=== PATIENT | female | born 1985 | race Caucasian/White ===

== ENCOUNTER 2024-05-05 05:47 | Inpatient (IN) ==
[2024-05-05 06:27] LABS: BASOPHILS % (AUTO) 0.4 %; EOSINOPHILS # (AUTO) 0.6 10^3/uL (0.0-0.7); EOSINOPHILS % (AUTO) 7.5 %; HCT - HEMATOCRIT 34.9 % (37.0-47.0); HGB - HEMOGLOBIN 11.5 g/dL (12.0-16.0); LYMPHOCYTES # (AUTO) 2.6 10^3/uL (1.5-3.5); LYMPHOCYTES % (AUTO) 33.7 %; MEAN CORPUSCULAR HEMOGLOBIN 29.2 pg (27.0-31.0); MEAN CORPUSCULAR VOLUME 88.6 fL (81.0-99.0); MEAN PLATELET VOLUME 11.9 fL (7.9-10.8); MONOCYTES # (AUTO) 0.6 10^3/uL (0.0-1.0); MONOCYTES % (AUTO) 7.5 %; NEUTROPHILS # (AUTO) 3.9 10^3/uL (1.5-6.6); NEUTROPHILS % (AUTO) 50.4 %; PLT - PLATELET COUNT 306 10^3/uL (130-450); RED BLOOD COUNT 3.94 10^6/uL (4.20-5.40); RED CELL DISTRIBUTION WIDTH 12.1 % (12.0-15.0); WHITE BLOOD COUNT 7.7 x10^3/uL (4.8-10.8)
[2024-05-05] MEDS ORDERED: ceFAZolin 2 GM VIAL ONE (06:27)
[2024-05-05] MEDS: ACETAMINOPHEN 500 MG TABLET PO ONE (06:33)
[2024-05-05] MEDS: LACTATED RINGERS 1,000 ML IV SCH (06:34)
[2024-05-05] MEDS ORDERED: PHENYLEPHRINE HCL 0.5 MG/5 ML AMPULE ONE (06:50)
[2024-05-05] MEDS ORDERED: ONDANSETRON 4 MG/2 ML VIAL ONE (06:50)
[2024-05-05] MEDS ORDERED: HYDROmorphone 0.5 MG/0.5 ML SYRINGE IVP PRN (07:14)
[2024-05-05] MEDS ORDERED: fentaNYL 100 MCG/2 ML VIAL IVP PRN (07:14)
[2024-05-05] MEDS ORDERED: MORPHINE 2 MG/ML CARPUJECT IVP PRN (07:14)
[2024-05-05] MEDS ORDERED: ONDANSETRON 4 MG/2 ML VIAL IVP PRN ×3 (07:14→09:28)
[2024-05-05] MEDS ORDERED: NALOXONE 0.4 MG/ML VIAL IVP PRN ×3 (07:14→09:28)
[2024-05-05] MEDS ORDERED: ATROPINE ABBOJECT 1 MG/10 ML SYRINGE IVP PRN (07:14)
--- NOTE | 2024-05-05 07:23 | ANESTHESIA PROCEDURE NOTE ---
Pre-Anesthesia VS, & Labs Diagnosis Surgical Diagnosis:: h previous C section Procedure Procedure: C section Vitals Vital Signs: Temp Pulse Resp BP 37.1 C 72 18 144/89 H 05/05/24 05:53 05/05/24 05:53 05/05/24 05:53 05/05/24 05:53 Height (in): 5 ft 7 in Weight (kg): 86.3 kg Body Mass Index: 29.7 BMI Classification: Overweight NPO NPO: >8 hours Is Patient ?: Yes Estimated Due Date:: 05/05/24 Lab Results Current Lab Results: Laboratory Tests 05/05/24 06:05: WBC 7.7, RBC 3.94 L, Hgb 11.5 L, Hct 34.9 L, MCV 88.6, MCH 29.2, MCHC 33.0, RDW 12.1, Plt Count 306, MPV 11.9 H, Neut # (Auto) 3.9, Lymph # (Auto) 2.6, Coffee # (Auto) 0.6, Eos # (Auto) 0.6, Baso # (Auto) 0.0, Absolute Nucleated RBC 0.00, Nucleated RBC % 0.0 Lab results reviewed: Yes 05/05/24 06:05 Meds/Allgy Home Medications Ambulatory Orders Medication Instructions Recorded Confirmed vitamins-iron 29 mg-folic tab PO 04/27/24 05/04/24 acid 1 mg-docusate 50 mg tablet Allergies Allergies Allergy/AdvReac Type Severity Reaction Status Date / Time iodine Allergy Unknown Unknown Verified 04/27/24 10:27 shellfish derived Allergy Unknown Anaphylaxis Verified 04/27/24 10:27 PFSH Active Problems All Active Problems Maternal care due to low transverse uterine scar from previous delivery (Acute) Uterine size date discrepancy (Acute) Medical History Medical History Headache Asthma Anemia Abruptio placenta Surgical History Surgical History H/O nasal septoplasty History of delivery x2 Family History Family History Mother Diabetes High blood pressure Maternal grandmother Diabetes Social History Social History Smoking Status: Former smoker If you are a former smoker, when did you quit? (Date/Year): 9months ago Number of Years Smoked: 10 How many cigarettes a day do you smoke? (20 cigarettes=1 Pk): 4 Do you dip or chew tobacco?: No Do you vape?: Yes Patient requests smoking cessation consult: No Initiate information on smoking cessation: No Do you feel safe in your home environment?: Yes ETOH Use: None Substance Use: denies use Anesthesia Exam (Expanded) Exam General: Alert and Oriented x3 Dental: WNL Mouth Opening: Greater than 4 Fingerbreadths Neck Mobility: Normal Mallampati classification: II Thyromental Distance: 4-6 cm Respiratory: No respiratory distress Cardiovascular: Regular rate Abdomen: Other (gravid ) Neurological: Normal speech Mental/Cognitive Status: Alert/Oriented X3 and Normal for patient Cognitive Status: Within normal limits Plan Problem List (1) H/O nasal septoplasty: (2) History of delivery: (3) Abruptio placenta: (4) Anemia: (5) Asthma: (6) Headache: (7) Maternal care due to low transverse uterine scar from previous delivery: (8) Uterine size date discrepancy: Plan Anesthesia Type: Spinal Consent for Procedure(s) Verified and Reviewed: Yes Code Status: Attempt Resuscitation ASA Classification ASA classification: 2-Mild systemic disease Is this case an emergency?: No
[2024-05-05] MEDS ORDERED: MORPHINE PF 5 MG/10 ML VIAL ONE (07:28)
[2024-05-05] MEDS ORDERED: PHENYLEPHRINE 10 MG/ML VIAL ONE (07:29)
[2024-05-05] MEDS ORDERED: miSOPROStoL 200 MCG TABLET ONE (07:29)
[2024-05-05] MEDS ORDERED: METHYLERGONOVINE 0.2 MG/ML VIAL ONE (07:30)
[2024-05-05] MEDS: CITRIC ACID/SODIUM CITRATE 15 ML UDC PO ONE (07:30)
[2024-05-05] MEDS: ceFAZolin (2G) 2 GM in SODIUM CHLORIDE 0.9% MINIBAG 100 ML IV ONE (07:30)
[2024-05-05] MEDS ORDERED: OXYTOCIN/SODIUM CHLORIDE 500 ML IV ONE (07:30)
[2024-05-05] MEDS ORDERED: fentaNYL 100 MCG/2 ML VIAL ONE (07:30)
[2024-05-05] MEDS ORDERED: CARBOPROST TROMETHAMINE 250 MCG/ML VIAL IM ONE (07:30)
[2024-05-05] MEDS ORDERED: DEXTROSE 40% GEL 37.5 GM TUBE ONE (07:32)
--- NOTE | 2024-05-05 07:38 | HISTORY & PHYSICAL EXAMINATION ---
Admit History Smoking Status: Former smoker Other Maternal History Other Maternal History: FINDINGS: General: A single living intrauterine gestation is present. Presentation: Variable Placenta: Placental position is posterior, without previa. Amniotic fluid index: 8.2 cm, measuring at the 7.8% for gestational age. Largest vertical pocket measures 3.4 cm. heart rate: 136 beats per minute. Maternal cervical canal: Not well seen on this exam. biometrics: Biparietal diameter: 8.86 cm, 35 weeks and 6 days (22nd percentile) Head circumference: 33.27 cm, 38 weeks and 0 days (36th percentile). Abdominal circumference: 30.44 cm, 34 weeks and 3 days (2.3rd percentile) Femur length: 6.98 cm, 35 weeks and 6 days (12th percentile) Estimated gestational age from initial scan: 37 weeks and 4 days Composite gestational age from present scan: 36 weeks and 0 days Estimated weight and percentile: 2242.9 g which correlates with the 10th percentile for gestational age. Expected Delivery Route/Plan Specific Issues/Plans LMP:08/16/23 SUHAS by LMP: U/S: 10/06/23 7w6d Final SUHAS: 05/18/2024 - AMA - S<D, growth US ordered - Prior CS x 2 - requested last op report Pre- weight: 165 BMI: 25.09 Blood type: B+ Antibody screen: neg CBC: PLT HCT HGB 12.5/36.0 253 Rubella: immune VZV: immune HBsAg: NR HepC: NR RPR/AB-EIA: NR HIV: NR Flu: declined COVID: recv'd in fall PAP: 10/25/23 neg GC/CT: 10/25/23 neg HSV: denies self/partner Genetic Testing: MaternIT 21/AFP negative FAS: 12/31/23 Placenta: posterior without previa Cord: 3VC JACOBO: EFW: 353g 60% 50gm GCT: 127 3 hr GTT: normal (107/156/125/90) TDAP: rcvd previous provider Breast Pump: given today 2nd antibody screen: 3rd trimester H/H 10.8/32.6 PLT 302 3rd trimester RPR: NR RSV: not given, too late GBS: 04/28/23 mls Delivery plan: Repeat (declines sterilization) contraception: partner vasectomy HPI Diagnosis/Indication for NST: Intrauterine growth restriction Current : Current EDU 05/05/24 Gestation 38 Weeks and 1 Days Para 2 Vital Signs Temperature 37.1 C 05/05/24 05:53 Pulse Rate 72 05/05/24 05:53 Respiratory Rate 18 05/05/24 05:53 Blood Pressure 144/89 H 05/05/24 05:53 NST Procedure NST Procedure: NST Procedure Start Date 05/05/24 Start Time 06:20 Stop Time 06:47 Vibroacoustic Stimulation Used No Patient States Movement Yes Results and Plan Findings/Impression: Reactive for of 32 weeks gestation or more. NST tracing contains at least two heart rate accelerations that are at least 15 beats per minute above the baseline rate and lasting at least 15 seconds from onset to return to baseline within a twenty minute period. Plan: continue with c section Meds/Allgy Home Medications Ambulatory Orders Medication Instructions Recorded Confirmed vitamins-iron 29 mg-folic tab PO 04/27/24 05/04/24 acid 1 mg-docusate 50 mg tablet Allergies Allergies Allergy/AdvReac Type Severity Reaction Status Date / Time iodine Allergy Unknown Unknown Verified 04/27/24 10:27 shellfish derived Allergy Unknown Anaphylaxis Verified 04/27/24 10:27 PFS Active Problems All Active Problems (Updated 05/05/24 @ 07:34 by Maxine Perkins MD) Intrauterine growth restriction (IUGR) affecting care of mother, third trimester, single gestation (Acute) Maternal care due to low transverse uterine scar from previous delivery (Acute) Medical History Medical History Headache Asthma Anemia Abruptio placenta Surgical History Surgical History H/O nasal septoplasty History of delivery x2 Family History Family History Mother Diabetes High blood pressure Maternal grandmother Diabetes Social History Social History Smoking Status: Former smoker If you are a former smoker, when did you quit? (Date/Year): 9months ago Number of Years Smoked: 10 How many cigarettes a day do you smoke? (20 cigarettes=1 Pk): 4 Do you dip or chew tobacco?: No Do you vape?: Yes Patient requests smoking cessation consult: No Initiate information on smoking cessation: No Do you feel safe in your home environment?: Yes ETOH Use: None Substance Use: denies use Review of Systems Constitutional Reports: Fatigue Cardiovascular Denies: Irregular heart rate, chest pain or shortness of breath with exertion Respiratory Denies: Shortness of breath Gastrointestinal Denies: Abdominal pain Neurological Denies: Headache Psychiatric Reports: Anxiety Endocrine Reports: Fatigue Physical Abdominal Exam Vital Signs: Temp Pulse Resp BP 37.1 C 72 18 144/89 H 05/05/24 05:53 05/05/24 05:53 05/05/24 05:53 05/05/24 05:53 patient is quite anxious and shedding tears hear RRR lungs: no respiratory distress abdomen with gravid uterus, but small for her gestation extremities not tender. no edema. Contraction Frequency (min/apart): none Presentation Presentation: positive Vertex Vaginal Exam Membranes: positive Membranes intact Speculum Exam Speculum Exam Performed: positive No Plan for Labor Plan For Labor I expect patient to be DC'd or transferred within 96 hours.: Yes Plan for Labor: repeat c section today as baby's AC is very small. 2500 grm EFW today. so recommend c section at 38 weeks instead of 39 due to probable placenta insufficiency. consents signed. Conclusion/Plan Problem List (1) Maternal care due to low transverse uterine scar from previous delivery: Plan: repeat c section today. did not want sterilization (2) Intrauterine growth restriction (IUGR) affecting care of mother, third trimester, single gestation: Plan: baby is just 2500 grams today. Lab Results Lab results reviewed: Yes 05/05/24 06:05
[2024-05-05] MEDS ORDERED: LACTATED RINGERS 1,000 ML IV SCH (08:00)
[2024-05-05] MEDS ORDERED: KETOROLAC 30 MG/ML VIAL ONE (08:22)
[2024-05-05] MEDS ORDERED: METOCLOPRAMIDE 10 MG/2 ML VIAL IVP PRN (08:53)
[2024-05-05] MEDS ORDERED: METOCLOPRAMIDE 10 MG TABLET PO PRN (08:53)
[2024-05-05] MEDS ORDERED: diphenhydrAMINE INJ 50 MG/ML VIAL IVP PRN (08:53)
[2024-05-05] MEDS ORDERED: OXYTOCIN/SODIUM CHLORIDE 500 ML IV PRN (08:53)
[2024-05-05] MEDS ORDERED: diphenhydrAMINE 25 MG CAPSULE PO PRN (08:53)
[2024-05-05] MEDS: PRENATAL VITAMIN TABLET PO SCH (09:00)
[2024-05-05] MEDS: DOCUSATE SODIUM 100 MG CAPSULE PO SCH (09:00)
--- NOTE | 2024-05-05 09:24 | ANESTHESIA POST OP EVALUATION ---
Anesthesia Post Eval Post Anesthesia Eval Vitals: Last Vital Signs Temp 36.3 C L 05/05/24 09:15 Pulse 48 L 05/05/24 09:15 Resp 16 05/05/24 09:15 BP 104/64 05/05/24 09:15 Pulse Ox 98 05/05/24 09:15 CV Function Including HR & BP: Stable Pain Control: Satisfactory Nausea & Vomiting: Negative Mental Status: Baseline Respiratory Status: Airway Patent Hydration Status: Satisfactory Anesthesia Complications: None
[2024-05-05] MEDS: MORPHINE PF 5 MG/10 ML VIAL IT ONE (09:28)
[2024-05-05] MEDS ORDERED: NALBUPHINE 10 MG/ML AMP IVP PRN (09:28)
[2024-05-05] MEDS: fentaNYL 100 MCG/2 ML VIAL IT ONE (09:30)
--- NOTE | 2024-05-05 12:33 | PHARMACY PROGRESS NOTE ---
Best Possible Medication History Admit Date and Time: 05/05/24 [id number] Home Medications Medication Instructions Recorded Confirmed Type vit no.133-ferrous 1 tab PO DAILY 05/05/24 05/05/24 History fumarate 28 mg-folic acid 800 mcg tablet () Processed by: Pharmacy Medications reviewed in ED?: No Medication History completed: Yes Patient Interview: Completed Secondary Source(s): Insurance records [facility] Statement: Per [facility] interview with patient and [facility]. As the person ultimately responsible for medication therapy, providers are able to order a medication from an existing home medication list in [facility] via the "Reconcile Routine" prior to Confirmation of that medication by technology support analyst. Such practice is discouraged except when the physician, in their clinical judgment, deems that a medical need exists for a medication without regard to previous use.
[2024-05-05] MEDS: oxyCODONE 5 MG TABLET PO PRN (13:51)
[2024-05-05] MEDS: ACETAMINOPHEN 500 MG TABLET PO SCH (14:23)
[2024-05-05] MEDS: KETOROLAC 30 MG/ML VIAL IVP SCH (14:23)
[2024-05-05] MEDS: SIMETHICONE CHEW 80 MG TABLET PO PRN (17:46)
--- NOTE | 2024-05-05 18:54 | OPERATIVE REPORT ---
Operative Report General Admit Date: 05/05/24 Procedure Data: Operation Date: 05/05/24 07:30 Proposed Procedures p Section(Not Applicable) - Maxine Perkins MD Actual Procedures p Section(Not Applicable) - Maxine Perkins MD Pre-Op Diagnosis: PREVIOUS Anesthesia Type Spinal Case Staff Anesthesia Provider: Estelita Arias Anesthesia Provider: Brenna Jay Assisting Provider: Fabiola Callahan Case Times Into Recovery: 05/05/24 08:37 Procedure Start: 05/05/24 07:59 Procedure End: 05/05/24 08:30 Time out: 05/05/24 07:58 Pre-Op Diagnosis: previous c section x 2, IUGR of baby, at 38 w ga Post Op Diagnosis: same delivered. Procedure Note Intake, IV Amount (ml): 1,100 Estimated Blood Loss (ml): 350 Output, Urine Amount (ml): 50 Pathology: placenta Indications: 38 yo with 3rd baby, first girl. baby measured small in office. US showed baby at 5th%ile for weight. AC at 2.3%ile. recommend c section today given IUGR, AMA and concern for placental insufficiency. 2 prior c sections. Just moved here 2 weeks ago from [place]. . EFW today is 2500 grams. Findings: live female infant names Rodolfo weighing 2472 grams, 5 lb 7 oz. Baby was crying well from time of . Placenta appeared normal. Uterus, tubes, and ovaries normal. Complications: none Other Other Information/Narrative: Procedure: RepeatLow Transverse Section Hse Specialist: My marketing communications assistant was scrubbed and present during the entire procedure and assisted with visualization, hemostasis, fundal pressure for delivery, and closure. Procedure Details The risks, benefits, complications, treatment options, and expected outcomes were discussed with the patient. The patient concurred with the proposed plan, giving informed consent. The patient was taken to the Operating Room. 2 grams of Cefazolin were given. She had sequential compression devices on her lower extremities. Andre catheter was placed. A Time Out was held and the above information confirmed. The patient was prepped in the usual sterile manner. Drapes were placed. Anesthesia was tested and found to be adequate. A Pfannenstiel incision was made and carried down through the subcutaneous tissue to the fascia. Fascial incision was made and extended transversely. The fascia was from the underlying rectus tissue superiorly and inferiorly. The peritoneum was identified and entered. Peritoneal incision was stretched. The Leonides retractor was placed and rolled down. The uterus was palpated to examine lie. A low transverse uterine incision was made. The incision was stretched manually. Bag of water was entered during the process and fluid was clear. The baby was elevated through the incision. Double nuchal cord was reduced. The baby was delivered and brought up towards her chest to show mom. Baby was dried and stimulated. I waited for 1 minute to clamp the cord. After the umbilical cord was clamped and cut, cord blood was obtained for evaluation. The placenta was removed intact using gentle traction and appeared normal, sent for pathology given IUGR. The uterine outline, tubes and ovaries appeared normal. The uterine incision was closed with running locked sutures of 0 Monocryl suture. A second horizontal imbricating layer was placed with the same suture. Hemostasis was observed. The Leonides retractor was removed. Rectus muscles were examined carefully for bleeding. The subcutaneous tissue was brought together with 3.0 Monocryl suture and the skin was closed with 3.0 Monocryl in subcuticular fascia. Dermabond was placed over the wound. Bandage was placed. Uterus was expressed, but little came out. Fundus was firm. Patient was then brought to the PACU in stable condition. Instrument, sponge, and needle counts were correct prior the abdominal closure and at the conclusion of the case. Drains: Andre catheter to gravity Complications: None; patient tolerated the procedure well. Disposition: back to her room on FBP for recovery. Condition: stable Plan: Routine post op care
[2024-05-06] MEDS: IBUPROFEN 600 MG TABLET PO SCH (08:44)
[2024-05-06 08:57] LABS: HCT - HEMATOCRIT 30.6 % (37.0-47.0); HGB - HEMOGLOBIN 9.7 g/dL (12.0-16.0); MEAN CORPUSCULAR HEMOGLOBIN 29.1 pg (27.0-31.0); MEAN CORPUSCULAR HGB CONC 31.7 g/dL (32.0-36.0); MEAN CORPUSCULAR VOLUME 91.9 fL (81.0-99.0); MEAN PLATELET VOLUME 11.4 fL (7.9-10.8); RED BLOOD COUNT 3.33 10^6/uL (4.20-5.40); RED CELL DISTRIBUTION WIDTH 12.3 % (12.0-15.0); WHITE BLOOD COUNT 5.9 x10^3/uL (4.8-10.8)
--- NOTE | 2024-05-06 14:51 | ANESTHESIA PROCEDURE NOTE ---
Anesthesia Epidural Template Patient Report Patient Reports: positive Inadequate control (c/o 11/17 PDPH s/sx, s/p dural pumcture for c/s 05/05) Plan Plan: positive Other (Epidural blood patch with 16cc autologus blood injected slowly. Pt c/o discomfort at 16cc. Patient states pain much better after procedure.)
--- NOTE | 2024-05-06 19:01 | PROVIDER PROGRESS NOTE ---
Subjective Subjective Subjective: Subjective Patient reports she is doing well. Lochia appropriate. Denies heavy bleeding. Ambulating. Pelvic and abdominal pain well-controlled. Tolerating oral intake. Diet: Regular. Voiding without difficulty. Passing flatus. Denies BM. Patient is bonding with baby in room Breast feeding slow to start. Pumping, but not getting much Denies feeling lightheaded, dizzy or excessively fatigued. Objective General: Alert, oriented, no apparent distress. Cardiovascular: Regular rate. Regular rhythm. Lungs: No increased work of breathing. Abdomen: Uterus firm. Below umbilicus. No guarding or rebound. Extremities: No pain on palpation. No cords palpated. Distal pulses intact. Incision: Clean, dry, and intact. Current Medications Current Medications Current Medications: Current Medications Generic Name Dose Route Start Last Admin Trade Name Freq PRN Reason Stop Dose Admin Acetaminophen 1,000 mg 05/05/24 09:00 05/06/24 06:19 Acetaminophen 500 Mg Tablet PO 1,000 mg Q8H TOMMY Administration Diphenhydramine HCl 25 mg 05/05/24 08:53 Diphenhydramine 25 Mg Capsule PO Q6HR PRN Allergy Symptoms Diphenhydramine HCl 25 mg 05/05/24 08:53 Diphenhydramine Inj 50 Mg/Ml Vial IVP Q6H PRN Allergy Symptoms Docusate Sodium 200 mg 05/05/24 09:00 05/06/24 08:44 Docusate Sodium 100 Mg Capsule PO 200 mg BID TOMMY Administration Lactated Ringer's 1,000 mls @ 125 mls/hr 05/05/24 07:00 05/06/24 09:44 Lr IV Not Given .Q8H TOMMY Oxytocin/Sodium Chloride 500 mls @ 999 mls/hr 05/05/24 08:53 Pitocin/Sodium Chloride IV PRN PRN POST- HEMORR PREVENTION Protocol 999 MILLIUNIT/MIN Ibuprofen 600 mg 05/06/24 09:00 05/06/24 08:44 Ibuprofen 600 Mg Tablet PO 600 mg Q6HR TOMMY Administration Metoclopramide HCl 5 mg 05/05/24 08:53 Metoclopramide 10 Mg Tablet PO Q6HR PRN Nausea / Vomiting Metoclopramide HCl 5 mg 05/05/24 08:53 Metoclopramide 10 Mg/2 Ml Vial IVP Q6HR PRN Nausea / Vomiting Naloxone HCl 0.4 mg 05/05/24 08:53 Naloxone 0.4 Mg/Ml Vial IVP .ONCE PRN Opioid overdose Ondansetron HCl 4 mg 05/05/24 08:53 Ondansetron 4 Mg/2 Ml Vial IVP Q4HR PRN Nausea / Vomiting Oxycodone HCl 5 mg 05/05/24 08:53 05/06/24 08:44 Oxycodone 5 Mg Tablet PO 5 mg Q4HR PRN Administration Severe Pain 6 -10 Multivit/Folic Acid/Iron 1 tab 05/05/24 09:00 05/05/24 09:00 Vitamin Tablet PO Not Given DAILY TOMMY Simethicone 80 mg 05/05/24 08:53 05/05/24 17:46 Simethicone Chew 80 Mg Tablet PO 80 mg TID PRN Administration Gas Objective Vital Signs/Intake & Output Vital Signs: Vital Signs x48h Temp Pulse Pulse Resp BP Pulse Ox 05/06/24 07:52 36.7 C 64 17 121/73 97 05/06/24 04:11 37 C 68 16 109/76 97 Intake & Output: Intake & Output 05/03/24 05/04/24 05/05/24 05/06/24 23:59 23:59 23:59 23:59 Intake Total 6223 / 6223 500 / 500 Output Total 605 / 605 450 / 450 Balance 5618 / 5618 50 / 50 Weight (kg) 190 lb 4.143 oz Lab Results 05/06/24 08:41 Other Labs: Lab Results x24hrs 05/06/24 Range/Units 08:41 WBC 5.9 (4.8-10.8) x10^3/uL RBC 3.33 L (4.20-5.40) 10^6/uL Hgb 9.7 L (12.0-16.0) g/dL Hct 30.6 L (37.0-47.0) % MCV 91.9 (81.0-99.0) fL MCH 29.1 (27.0-31.0) pg MCHC 31.7 L (32.0-36.0) g/dL RDW 12.3 (12.0-15.0) % Plt Count 212 (130-450) 10^3/uL MPV 11.4 H (7.9-10.8) fL Assessment/Plan Problem List (1) care and examination of lactating mother: Impression: Routine care anticipate discharge in 1 to 2 days. Routine pain control. Encouraged ambulation. Continue to work on breast-feeding as this is slow to start. (2) Delivery outcome of liveborn : Impression: As above (3) Delivery by section: Impression: Routine postop care
--- NOTE | 2024-05-07 11:37 | PROVIDER PROGRESS NOTE ---
Subjective Prog Note Date Prog Note Date: 05/07/24 Prog Note Time: 11:00 Subjective Pt reports feeling: Improved Subjective: Comfortable with pain medications. Appropriate lochia. Ambulating. Voiding. Tolerating regular diet. . Mood is good. Epidural blood patch yesterday, better but area is sore. Current Medications Current Medications Current Medications: Current Medications Generic Name Dose Route Start Last Admin Trade Name Freq PRN Reason Stop Dose Admin Acetaminophen 1,000 mg 05/05/24 09:00 05/07/24 08:53 Acetaminophen 500 Mg Tablet PO 1,000 mg Q8H TOMMY Administration Diphenhydramine HCl 25 mg 05/05/24 08:53 Diphenhydramine 25 Mg Capsule PO Q6HR PRN Allergy Symptoms Diphenhydramine HCl 25 mg 05/05/24 08:53 Diphenhydramine Inj 50 Mg/Ml Vial IVP Q6H PRN Allergy Symptoms Docusate Sodium 200 mg 05/05/24 09:00 05/07/24 08:54 Docusate Sodium 100 Mg Capsule PO 200 mg BID TOMMY Administration Lactated Ringer's 1,000 mls @ 125 mls/hr 05/05/24 07:00 05/06/24 09:44 Lr IV Not Given .Q8H TOMMY Oxytocin/Sodium Chloride 500 mls @ 999 mls/hr 05/05/24 08:53 Pitocin/Sodium Chloride IV PRN PRN POST- HEMORR PREVENTION Protocol 999 MILLIUNIT/MIN Ibuprofen 600 mg 05/06/24 09:00 05/07/24 08:53 Ibuprofen 600 Mg Tablet PO 600 mg Q6HR TOMMY Administration Metoclopramide HCl 5 mg 05/05/24 08:53 Metoclopramide 10 Mg Tablet PO Q6HR PRN Nausea / Vomiting Metoclopramide HCl 5 mg 05/05/24 08:53 Metoclopramide 10 Mg/2 Ml Vial IVP Q6HR PRN Nausea / Vomiting Naloxone HCl 0.4 mg 05/05/24 08:53 Naloxone 0.4 Mg/Ml Vial IVP .ONCE PRN Opioid overdose Ondansetron HCl 4 mg 05/05/24 08:53 Ondansetron 4 Mg/2 Ml Vial IVP Q4HR PRN Nausea / Vomiting Oxycodone HCl 5 mg 05/05/24 08:53 05/07/24 08:54 Oxycodone 5 Mg Tablet PO 5 mg Q4HR PRN Administration Severe Pain 6 -10 Multivit/Folic Acid/Iron 1 tab 05/05/24 09:00 05/07/24 08:53 Vitamin Tablet PO 1 tab DAILY TOMMY Administration Simethicone 80 mg 05/05/24 08:53 05/07/24 08:54 Simethicone Chew 80 Mg Tablet PO 80 mg TID PRN Administration Gas Objective Vital Signs/Intake & Output Reviewed Vital Signs: Yes Vital Signs: Vital Signs x48h Temp Pulse Resp BP Pulse Ox 05/07/24 09:30 37.2 C 96 17 121/84 94 05/07/24 03:38 37.1 C 70 18 122/76 98 Intake & Output: Intake & Output 05/04/24 05/05/24 05/06/24 05/07/24 23:59 23:59 23:59 23:59 Intake Total 6223 / 6223 1400 / 1400 Output Total 605 / 605 450 / 450 Balance 5618 / 5618 950 / 950 Weight (kg) 86.3 kg Objective General Appearance: positive No acute distress Respiratory: positive No respiratory distress Abdomen: positive Other (Appropriate tenderness, incision c/d/i) Skin: positive Color nml Extremities: positive Non-tender Neurologic/Psychiatric: positive Oriented x3 Lab Results 05/06/24 08:41 Assessment/Plan Problem List (1) care and examination of lactating mother: Impression: 38yo s/p RCD 05/05 POD#2 - Continue postoperative, care - Anticipate discharge tomorrow (2) Delivery outcome of liveborn infant: Qualifiers: Number of infants delivered: single Qualified Code(s): Z37.0 - Single live (3) Delivery by section:
[2024-05-07 17:31] VITALS: O2SAT 97
[2024-05-08 09:34] VITALS: BP 134/75; TEMP 98.2
--- NOTE | 2024-05-08 11:17 | Discharge Summary ---
Discharge Summary Admit Date: 05/05/24 Discharge Date: 05/08/24 Discharging Provider: Cheyenne Kelly Code Status: Attempt Resuscitation Discharge Facility [facility]: [facility] DIAGNOSES Admission Diagnoses: 38yo with IUP 38. 1w IUGR Discharge Diagnoses with Status of Each Condition: 38yo with IUP 38. 1w IUGR HPI History of Present Illness: 38yo at 38.1w admitted on 05/05/24 for scheduled RCD. HOSPITAL COURSE Hospital Course: 38yo at 38.1w admitted on 05/05/24 for scheduled RCD. See operative report for uncomplicated RCD. She has been recovering well. Required blood patch. Pain controlled. Appropriate lochia. Ambulating. Voiding. Tolerating regular diet. . Mood is good. She feels ready to go home POD#3. Reviewed care, postoperative care, PPD. She should follow up 1-2w in [facility]. ALLERGIES Allergies Allergy/AdvReac Type Severity Reaction Status Date / Time iodine Allergy Unknown Unknown Verified 05/06/24 07:49 shellfish derived Allergy Unknown Anaphylaxis Verified 05/06/24 07:49 MEDICATIONS Ambulatory Orders Medication Instructions Recorded Confirmed vit no.133-ferrous 1 tab PO DAILY 05/05/24 05/05/24 fumarate 28 mg-folic acid 800 mcg tablet () acetaminophen 500 mg tablet 1,000 mg (2 x 500 mg) PO Q8H 30 05/08/24 days #60 tabs docusate sodium 100 mg capsule 100 mg PO BID 7 days #14 caps 05/08/24 ibuprofen 800 mg tablet 800 mg PO Q8HR 30 days #90 tabs 05/08/24 oxycodone 5 mg tablet 5 mg PO Q6HR PRN Severe Pain 6 -10 05/08/24 3 days #12 tabs PHYSICAL EXAM AT DISCHARGE General Appearance: positive No acute distress Respiratory: positive No respiratory distress Abdomen: positive Non-tender Skin: positive Color nml Extremities: positive Non-tender Neurologic/Psychiatric: positive Oriented x3 LABS 05/06/24 08:41 FOLLOW UP Follow Up: 2w TIME SPENT Time Spent in Discharge (Minutes): 30 Discharge Plan Discharge Patient Disposition: Home, Self Care Condition: Good Medically Cleared Date:: 05/08/24 Prescriptions: New acetaminophen 500 mg Tablet 1,000 mg PO Q8H 30 Days Qty: 60 0RF oxycodone 5 mg Tablet 5 mg PO Q6HR PRN (Reason: Severe Pain 6 -10) 3 Days Qty: 12 0RF ibuprofen 800 mg tablet 800 mg PO Q8HR 30 Days Qty: 90 0RF docusate sodium 100 mg Capsule 100 mg PO BID 7 Days Qty: 14 0RF Continued 28-800 mg-mcg tablet 1 tab PO DAILY Print Language: Albanian Patient Instructions: , Follow-up Care: Maxine Perkins MD [Provider Admit Priv/Credential] - 2 Weeks
--- NOTE | 2024-05-08 13:09 | Labor Flowsheet ---
Labor Flowsheet Datetime Report Generated by CPN: 05/08/2024 13:08 Datetime: 05/05/2024 09:30 VAGINAL EXAM Membranes Ruptured Date/Time: 05/05/2024 08:05 Membranes Rupture Method: Artificial Amniotic Fluid Color: Clear
== END 2024-05-08 12:10 | disposition home or self-care (01) | DRG 788 ==
LOC: FBP 05:47
PROVIDERS: ADMIT Obstetrics & Gynecology; ATTEND Obstetrics & Gynecology
DX: O69.81X0 Labor and delivery complicated by cord around neck, without compression, not applicable or unspecified; Z3A.38 38 weeks gestation of pregnancy; O36.5130 Maternal care for known or suspected placental insufficiency, third trimester, not applicable or unspecified; Z37.0 Single live birth; O34.211 Maternal care for low transverse scar from previous cesarean delivery; N85.8 Other specified noninflammatory disorders of uterus; Z87.891 Personal history of nicotine dependence; O36.5930 Maternal care for other known or suspected poor fetal growth, third trimester, not applicable or unspecified